=== PATIENT | male | born 1985 | race Two or more races ===

== ENCOUNTER 2018-04-12 02:24 | Emergency (ER) | payer MEDICAID ==
[2018-04-12] MEDS ORDERED: Sodium Chloride 0.9% 1,000 ML IV ONE (02:50)
[2018-04-12] MEDS ORDERED: Sodium Chloride 0.9% 1,000 ML ONE (03:00)
[2018-04-12 03:02] LABS: BASO # 0.1 K/uL (0.0-0.2); BASO % 0.8 % (0.0-2.0); EOS # 0.2 K/uL (0.0-0.7); EOS % 2.3 % (0.0-4.0); HEMOGLOBIN 15.3 g/dL (12.0-18.0); LYMPH # 0.5 K/uL (1.0-4.3); LYMPH % 7.7 % (20.0-40.0); MEAN CELL VOLUME 87.5 fL (80.0-94.0); MEAN CORPUSCULAR HEMOGLOBIN 30.8 pg (27.0-31.0); MEAN CORPUSCULAR HGB CONC 35.2 g/dL (33.0-37.0); MEAN PLATELET VOLUME 8.6 fL (7.2-11.7); MONO % 13.4 % (0.0-10.0); NEUT # 5.4 K/uL (1.8-7.0); NEUT % 75.8 % (50.0-75.0); PLATELET COUNT 162 K/uL (130-400); RBC 4.98 Mil/uL (4.40-5.90); RED CELL DISTRIBUTION WIDTH 13.6 % (11.5-14.5); WHITE BLOOD COUNT 7.1 K/uL (4.8-10.8)
--- NOTE | 2018-04-12 03:02 | C.PDOC ---
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 Car Wash Attendant states he noticed yesterday that patient has not been eating as much. Car Wash Attendant has been treating patient with advil with no relief. Denies abdominal pain or diarrhea. Time Seen by Provider: 04/12/18 02:42 Chief Complaint (Nursing): Fever History Per: Family History/Exam Limitations: no limitations Onset/Duration Of Symptoms: Hrs Current Symptoms Are (Timing): Still Present Sick Contacts (Context): None Associated Symptoms: Fever, Nasal Congestion, Vomiting, Other ((+) Lip blisters (-) Abdominal pain). denies: Diarrhea Past Medical History Reviewed: Historical Data, Nursing Documentation, Vital Signs Vital Signs: Last Vital Signs Temp 98.9 F 04/12/18 04:01 Pulse 85 04/12/18 04:01 Resp 20 04/12/18 04:01 BP 123/62 04/12/18 04:01 Pulse Ox 100 04/12/18 04:01 - Medical History PMH: Anxiety Family History: States: Unknown Family Hx - Social History Hx Tobacco Use: No Hx Alcohol Use: No Hx Substance Use: No - Immunization History Hx Tetanus Toxoid Vaccination: No Hx Influenza Vaccination: No Hx Pneumococcal Vaccination: No Review Of Systems Constitutional: Positive for: Fever ENT: Positive for: Nose Congestion, Other (Lip blisters) Gastrointestinal: Positive for: Vomiting. Negative for: Abdominal Pain, Diarrhea Genitourinary: Negative for: Dysuria, Hematuria Skin: Negative for: Rash Physical Exam - Physical Exam Appears: Non-toxic Skin: Normal Color, Warm, Dry Head: Atraumatic, Normacephalic Eye(s): bilateral: Normal Inspection Ear(s): Bilateral: Normal Nose: Normal Oral Mucosa: Moist, Other (Blisters) Lips: Other (Blisters) Throat: Erythema, No Exudate Neck: Normal, Supple Chest: Symmetrical, No Tenderness Cardiovascular: Rhythm Regular (Tachycardic) Respiratory: Normal Breath Sounds, No Rales, No Rhonchi, No Wheezing Gastrointestinal/Abdominal: Soft, No Tenderness Neurological/Psych: Oriented x3, Normal Speech ED Course And Treatment - Laboratory Results Result Diagrams: 04/12/18 02:56 04/12/18 02:56 O2 Sat by Pulse Oximetry: 97 (Room air) Pulse Ox Interpretation: Normal Medical Decision Making Medical Decision Making: Impression: 32 year old male with fever Plan: * Blood work * Obstructive series * Urinalysis * Flu swab * Rapid strep * IV fluids * Zofran Progress: Labs reviewed showing no leukocytosis or bands. Urine clear. LFTs slightly elevate, insignificant finding. On re-eval, patient resting on stretcher in no distress. He does not have pain or signs of distress. Car Wash Attendant feels comfortable taking patient home and will be discharged. Instruct to follow up with primary physician for further evaluation in 2-4 days. Disposition Counseled Patient/Family Regarding: Diagnosis, Need For Followup, Rx Given - Disposition Referrals: Fran Waite MD [Primary Care Provider] - Disposition: HOME/ ROUTINE Disposition Time: 03:43 Condition: STABLE Additional Instructions: You were seen in ED for fever. Labs normal and xray shows mild constipation Recommend more fluids and fiber to help with constipation, can take Miralax available over the counter. Tylenol or Motrin alternating every 4-6 hours for Fever 100.4F or higher It is important that you follow up with your doctor Return to the emergency department at any time if symptoms persist or worsen. Usted fue visto en urgencias por fiebre. Labs normal y radiografa muestra estre imiento leve Recomiende ms lquidos y fibra para ayudar con el estreimiento, puede mariya Miralax disponible sin receta mdica. Tylenol o Motrin alternando cada 4-6 horas para Fiebre 100.4F o mayor Es importante que satish un seguimiento con fish mdico Regrese al departamento de emergencia en cualquier momento si los sntomas persisten o empeoran. Prescriptions: Mag&Al/Simet/Diphen/Lido [First Magic Mouthwash] 5 ml MM DAILY #1 kit Instructions: Fever, Adult (DC), Cold Sores (Oral Herpes) (DC) Print Language: TURKMEN - POA Present On Arrival: None - Clinical Impression Clinical Impression: Fever blister, Constipation, Viral illness - PA / VICE PRESIDENT OF DEVELOPMENT / Resident Statement MD/DO has reviewed & agrees with the documentation as recorded. - Scribe Statement The provider has reviewed the documentation as recorded by the Scribe Catracho Babb All medical record entries made by the Scribe were at my direction and personally dictated by me. I have reviewed the chart and agree that the record accurately reflects my personal performance of the history, physical exam, medical decision making, and the department course for this patient. I have also personally directed, reviewed, and agree with the discharge instructions and disposition.
[2018-04-12 03:16] LABS: ALB/GLOB RATIO 1.5 (1.0-2.1); ALBUMIN 4.6 g/dL (3.5-5.0); ALT/SGPT 204 U/L (21-72); AST/SGOT 151 U/L (17-59); BLOOD UREA NITROGEN 13 mg/dL (9-20); CALCIUM 9.2 mg/dl (8.6-10.4); GFR AFRICAN-AMERICAN > 60; GFR NON-AFRICAN AMERICAN > 60; LIPASE 41 U/L (23-300)
[2018-04-12 03:24] LABS: SQUAMOUS EPITHIAL < 1 /hpf (0-5); URINE BILIRUBIN NEGATIVE (NEGATIVE); URINE BLOOD NEGATIVE (NEGATIVE); URINE CLARITY Clear (Clear); URINE COLOR Yellow (YELLOW); URINE GLUCOSE (UA) NORMAL (Normal); URINE LEUKOCYTE ESTERASE NEG Leu/uL (Negative); URINE PROTEIN NEGATIVE (NEGATIVE); URINE UROBILINOGEN NORMAL mg/dL (0.2-1.0)
[2018-04-12 03:35] LABS: INFLUENZA A B NEGATIVE FOR FLU A/B (NEGATIVE)
[2018-04-12 04:01] VITALS: BP 123/62; PULSE 85; RESP 20; TEMP 98.9
[2018-04-12 04:01] LABS: BANDS 8 % (0-2); EOSINOPHIL 3 % (0-4); LYMPHOCYTE 7 % (20-40); MONOCYTE 6 % (0-10); MYELOCYTE 1 % (0-0); NEUTROPHIL 75 % (50-75); PLATELET ESTIMATE NORMAL (NORMAL); TOTAL CELLS COUNTED 100
[2018-04-12 04:16] VITALS: O2SAT 97
--- NOTE | 2018-04-12 09:46 | RAD ---
PROCEDURE: Radiographs of the chest and abdomen (obstructive series) HISTORY: Abdominal pain COMPARISON: No prior. TECHNIQUE: AP radiograph of the chest, with upright and supine radiographs of the abdomen. FINDINGS: CHEST: Lungs: The lungs are well inflated. There is bibasilar atelectasis. Cardiovascular: Normal size heart. No pulmonary vascular congestion. Pleura: No pleural fluid. No pneumothorax. Other findings: None. ABDOMEN AND PELVIS: Bowel: There is mild gaseous distension of small bowel loops. There is moderate amount of stool in the colon. Free air: None. Bones: Unremarkable. Other findings: None. IMPRESSION: Constipation. Mild gaseous distension of the small bowel loops which could be related to developing small bowel obstruction or nonspecific enteritis. Follow-up is advised. No active pulmonary disease.
== END 2018-04-12 04:04 | disposition home or self-care (01) ==
LOC: C.ER 02:24 → SUPCPDRO 02:24 → C.ER 04:04
DX: B00.1 Herpesviral vesicular dermatitis (principal); K59.00 Constipation, unspecified; B34.9 Viral infection, unspecified
CPT/HCPCS: 74022; 80053; 81001; 83690; 85025; 87070; 87086; 87430; 87804; 96361; 96374; 99285; J2405; J7030